=== PATIENT | female | born 1955 | race Caucasian/White ===

== ENCOUNTER 2017-01-24 00:17 | Day surgery (SDC) | payer OTHER ==
[~2017-01-24] VITALS: Ht 167.6 cm; Wt 101.2 kg
[~2017-01-24 00:17] MED LIST: ATEN100T PO; CHOL10008 PO; LISI10TA PO; NAPR220C11 PO; TRAM50TA2 PO
[2017-01-24] MEDS ORDERED: fentaNYL-PF 50 mCg/mL 2 mL Inj IVPUSH PRN (06:00)
[2017-01-24] MEDS ORDERED: Lactated Ringer's 1,000 ML IV ONE (06:00)
[2017-01-24] MEDS ORDERED: Sodium Chloride LOK Flush 10 mL Syringe IV PRN (06:00)
[2017-01-24 10:37] VITALS: BP 157/92; PULSE 72; RESP 16; O2SAT 97
[2017-01-24] MEDS: 0.9% Sodium Chloride 1,000 ML IV SCH ×2 (11:01→11:19)
[2017-01-24 11:26] VITALS: BP 142/73; PULSE 71; RESP 14; O2SAT 95
[2017-01-24 11:34] VITALS: BP 142/61; PULSE 78; RESP 16; O2SAT 98
[2017-01-24 11:36] VITALS: BP 152/90; PULSE 78; RESP 16; O2SAT 98
--- NOTE | 2017-01-24 12:56 | ENDO ---
[address] [address] ENDOSCOPY PROCEDURE PATIENT: ROSINA MAC : 1955 MR#: [id number] ADMIT: 01/24/2017 JOB ID: [id number] DATE: 01/24/2017 PRIMARY PROVIDER: Jessica Maynard M.D. PROCEDURE: Colonoscopy. INDICATIONS: A 61-year-old female who reports for colon cancer screening. EQUIPMENT: PCF H 190 DL. SEDATION: 1. 5 mg Versed. 2. 100 mcg fentanyl. COMPLICATIONS: None identified. BOWEL PREPARATION: Very adequate. PROCEDURAL INFORMATION: After the risks and benefits were explained, written and verbal informed consent was obtained. The patient was brought into the endoscopy suite and placed into the left lateral decubitus position. Sedation was achieved using the above-stated medications with the addition of oxygen via nasal cannula. Digital rectal examination was accomplished. No significant pathology was appreciated. Mild internal hemorrhoids. The scope was introduced into the rectum and advanced under direct visualization to the level of the cecum, as identified by the appendiceal orifice and ileocecal valve. The scope was slowly withdrawn to carefully examine the mucosa for any defects or lesions. Retroflexed views were avoided in the rectum. Multiple direct views were made through the dentate line for exclusion of pathology. The colon was decompressed. The scope removed the patient who tolerated the procedure well. FINDINGS: No significant polyps, mass lesions or inflammatory features identified throughout. ENDOSCOPIC DIAGNOSES: Visually unremarkable colonoscopy to cecum. RECOMMENDATIONS: Repeat colonoscopy 10 years' time, sooner should symptoms warrant.
== END 2017-01-24 23:59 | disposition home or self-care (01) ==
LOC: END 00:17
PROVIDERS: ATTEND Internal Medicine Gastroenterology
DX: Z12.11 Encounter for screening for malignant neoplasm of colon (principal); I10 Essential (primary) hypertension; E78.5 Hyperlipidemia, unspecified; M54.5 Low back pain; E66.01 Morbid (severe) obesity due to excess calories; R73.09 Other abnormal glucose; Z68.35 Body mass index [BMI] 35.0-35.9, adult
CPT/HCPCS: G0121; G0500; J2250; J3010; J7030